=== PATIENT | male | born 2000 | race Hispanic/Latino ===

== ENCOUNTER 2021-02-05 11:45 | Emergency (ER) | payer SELFPAY ==
[~2021-02-05] VITALS: Ht 167.6 cm; Wt 77.3 kg
[2021-02-05] MEDS ORDERED: PENICILLN VK500 MG PO (12:50)
[2021-02-05 12:58] VITALS: BP 116/72
== END 2021-02-05 13:10 | disposition home or self-care (01) | DRG 159 ==
LOC: ED 11:45
DX: K04.7 Periapical abscess without sinus (principal)

== ENCOUNTER 2022-06-27 23:39 | Emergency (ER) | payer SELFPAY ==
[~2022-06-27] VITALS: Ht 167.6 cm; Wt 135.0 kg
[~2022-06-27 23:39] MED LIST: PENICILLN VK500 MG PO
[2022-06-27 23:45] VITALS: BP 119/83
[2022-06-28] VITALS: BP 113/65
[2022-06-28 00:15] VITALS: BP 115/82
[2022-06-28 01:04] LABS: BASO% 0.6 % (0-3); HEMATOCRIT 44.5 % (39.0-50.0); IMMATURE GRANULOCYTES 0.8 % (0.0-5.0); LYMPH% 27.4 % (15-41); MEAN CELL VOLUME 82.3 fL CALC (80.0-100.0); MEAN CORPUSCULAR HGB 27.7 pG CALC (26.0-32.0); MEAN CORPUSCULAR HGB CONC 33.7 g/dL CAL (32.0-36.0); MONO% 4.4 % (2-13); NEUT# 4.91 thou/uL (1.82-7.42); NEUT% 61.8 % (42-76); RED BLOOD COUNT 5.41 mill/uL (4.70-6.10); RED CELL DISTRI WIDTH 12.4 % (11.5-15.5)
[2022-06-28 01:26] LABS: ANION GAP 16 (6-22 (CALC)); BUN 9 mg/dL (9-20); BUN/CREATININE RATIO 16 (12-20 (CALC)); CARBON DIOXIDE 27 mmol/l (22-30); CHLORIDE 105 mmol/l (95-108); CREATININE 0.6 mg/dL (0.7-1.3); ETHYL ALCOHOL 155 mg/dl (0-30); GFR FOR AFR.AMER. > 60 ML/MIN (>=60 (CALC)); GFR OTHER RACES > 60 ML/MIN (>=60 (CALC)); POTASSIUM 3.4 mmol/l (3.5-5.1); SODIUM 144 mmol/l (137-146)
[2022-06-28 02:07] VITALS: BP 115/82
== END 2022-06-28 02:15 | DRG 897 ==
LOC: ED 23:39
PROVIDERS: Emergency Medicine
DX: F10.129 Alcohol abuse with intoxication, unspecified (principal); Y90.6 Blood alcohol level of 120-199 mg/100 ml